=== PATIENT | male | born 1980 | race Two or more races ===

== ENCOUNTER 2024-11-11 09:21 | Emergency (ER) | payer OTHER, SELFPAY ==
[2024-11-11 09:24] VITALS: BP 158/95; PULSE 74; RESP 18; TEMP 36.7; O2SAT 96
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
[2024-11-11 09:26] VITALS: BMI 30.7
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
--- NOTE | 2024-11-11 13:02 | PD.EDADDENDU ---
Emergency Room Addendum Addendum Narrative: PROCEDURE NOTE: Patient has a 2cm full thickness chevron shaped laceration just distal to the medial canthus of the right eye. The site was cleaned, irrigated, and without any foreign bodies. 1cc of 1% Lidocaine with Epinephrine was used to numb the area. Laceration was closed with 2 interrupted 6-0 Ethilon sutures with good approximation, no complications. Patient tolerated procedure well.
[2024-11-11] MEDS: ACETAMINOPHEN 325 MG TABLET 650 MG PO (13:22)
[2024-11-11] MEDS: DIPHTH,PERTUSS(ACELL),TET VAC 0.5 ML SYR- ADULT IMi (13:23)
[2024-11-11] MEDS: BUPIVACAINE MPF 0.5% 10 ML VIAL INFL (13:23)
[2024-11-11 14:44] VITALS: BP 127/73; PULSE 64; RESP 16; TEMP 37.1; O2SAT 97
== END 2024-11-11 15:36 | disposition home or self-care (01) ==
PROVIDERS: Emergency Provider Emergency Medicine; PCP Internal Medicine
DX: S01.411A Laceration without foreign body of right cheek and temporomandibular area, initial encounter (principal); S02.40CA Maxillary fracture, right side, initial encounter for closed fracture; H11.31 Conjunctival hemorrhage, right eye; S09.90XA Unspecified injury of head, initial encounter; S02.85XA Fracture of orbit, unspecified, initial encounter for closed fracture; S02.2XXA Fracture of nasal bones, initial encounter for closed fracture; Y04.0XXA Assault by unarmed brawl or fight, initial encounter; M54.2 Cervicalgia; Z23 Encounter for immunization
CPT/HCPCS: 12011; 70450; 70486; 72125; 90471; 90715; 99284; J3490; A9270